=== PATIENT | female | born 1980 | race Caucasian/White ===

== ENCOUNTER 2019-10-09 11:12 | Emergency (ER) | payer OTHER, SELFPAY ==
[2019-10-09 11:19] VITALS: BP 164/100; PULSE 93; RESP 16; TEMP 36.7; O2SAT 100; BMI 22.3
--- NOTE | 2019-10-09 11:40 | HMH.EDBACK ---
ED Disposition Clinical Impression: Strain of lumbar region, Lumbar radiculopathy Disposition: Home, Self-Care Condition on Discharge: Good Instructions: DI for Low Back Pain Prescriptions: Nabumetone 750 mg PO BID 10 Days #20 tab Transmission Status: Pending to [facility] Tizanidine HCl [Zanaflex 4mg tablet] 4 mg PO TID 10 Days #30 tab Transmission Status: Pending to [facility] Referrals: PCP,No [Primary Care Provider] - - Critical Care Critical Care Time: No Attestation: On 10/09/19, the high probability of a clinically significant, sudden or life threatening deterioration of the following system(s) required my full and direct attention, intervention and personal management. The time I documented below is in addition to time spent performing reported procedures but includes the following listed in this critical care notation. Medical Decision Making - Medical Records Medical records reviewed: Yes: I reviewed the patient's medical records. - Cristian Inquiry Pt receiving controlled substance: No Vital Signs: 10/09/19 11:19 Temperature 98.1 F Temperature Source Oral Pulse Rate [Right] 93 H Respiratory Rate 16 Blood Pressure [Right Arm] 164/100 H Blood Pressure Mean [Right Arm] 121 Blood Pressure Source [Right Arm] Automatic Cuff Blood Pressure Position [Right Arm] Sitting 02 Sat by Pulse Oximetry 100 Oxygen Delivery Method Room Air - Lab Data Lab results reviewed: Yes: I reviewed the patient's lab results. - CT Data CT Scan: L-Spine Time Received: 13:[address] Reviewed: Yes: I have viewed the radiologist's interpretation Preliminary Findings: Normal/NAD Back Pain HPI - General Chief Complaint: Back Pain/Injury Stated Complaint: back pain Time Seen by Provider: 10/09/19 11:30 Mode of Arrival: Ambulatory Limitations: No Limitations Description of Symptoms (Recalled from ER Triage Doc. by RN): Pt c/o left lower back pain that goes down into her leg. Advises it started earlier in the week and it has gotten progressively worse - History of Present Illness MD Complaint: back pain Onset (ago): day(s) Duration: constant Similar Symptoms Previously: No Location: lumbar spine Severity: moderate Quality: sharp Radiation: left leg Severity scale (1-10): 6 Relieving factors: supine, walking Exacerbating factors: movement Context: turning/twisting Associated symptoms: denies other symptoms Treatments prior to arrival: cold therapy, NSAIDS - Related Data Previous Rx's Medication Instructions Recorded Nabumetone 750 mg PO BID 10 Days #20 tab 10/09/19 Tizanidine HCl [Zanaflex 4mg 4 mg PO TID 10 Days #30 tab 10/09/19 tablet] Allergies Allergy/AdvReac Type Severity Reaction Status Date / Time No Known Allergies Allergy Verified 10/09/19 11:23 [facility] History - Hepatitis A Screen Drug use history?: No High risk sexual behaviors?: No History of sexually transmitted infection?: No Currently employed?: No Childcare worker?: No Do you have indoor plumbing?: Yes Do you have electricity?: Yes Attestation statement:: This patient has been screened for Hepatitis A risk factors. I have reviewed the patient's past medical history: Yes Laterality Cases: Bilateral: Myringotomy (Ear Tubes) Other Surgeries: Yes: Appendectomy, Tubal Ligation Fractures: Yes Comment: right arm and right leg fracture repair, collapsed lung - Social History Smoking Status: Current every day smoker Tobacco Type: cigarettes # Packs/Day (cigarettes): 1 Alcohol Intake: never Occupational Status: employed Housing: house Household Members: family Family Hx:: No significant family history ROS Obtained: Yes All systems reviewed & no additional complaints - Constitutional Constitutional: Reports system reviewed and no additional complaints, except as docu - Eyes Eyes: Reports system reviewed and no additional complaints, except as docu - ENT Ears, Nose, Mouth, and Throat: Reports system re
--- NOTE | 2019-10-09 11:44 | CT_ITS ---
PROCEDURE: CT LUMBAR SPINE WO CON CLINICAL HISTORY: low back Low back pain extending into the left leg COMPARISON: No exams were available for comparison TECHNIQUE: Axial images obtained with sagittal and coronal reformats. All CT scans at the facility use one or more dose reduction, viz: automated exposure control, ma/kV adjustment per patient size (including targeted exams where dose is matched to indication, i.e. head), or iterative reconstruction technique. FINDINGS: Normal alignment. No fracture or dislocation. Mild bulging disc L3-L4 with small central disc protrusion and minimal left foraminal disc protrusion. MRI may confirm. Bulging disc at L4-5 eccentric to the left is noted with facet and ligamentum hypertrophy with lateral recess narrowing and mild bilateral foraminal narrowing left greater than right L5-S1: Mild bulging disc slightly eccentric to the left with small central disc protrusion. Mild degenerative disc disease L5-S1. IMPRESSION: 1. Mild bulging disc L3-L4 with small central disc protrusion and minimal left foraminal disc protrusion. 2. Bulging disc at L4-5 eccentric to the left is noted with facet and ligamentum hypertrophy with lateral recess narrowing and mild bilateral foraminal narrowing left greater than right 3. L5-S1: Mild bulging disc slightly eccentric to the left with small central disc protrusion. Mild degenerative disc disease L5-S1. 4. MRI may provide further evaluation to determine if there is any neural impingement at the above mentioned abnormalities Dictated b Al Aleman MD 10/10/2019 06:37 Al Aleman MD in [place] 10/10/2019 06:37
[2019-10-09 13:02] VITALS: BP 133/90; PULSE 78; RESP 16; O2SAT 100
[2019-10-09 13:11] VITALS: BP 145/85; PULSE 80; RESP 17; TEMP 36.7; O2SAT 98
== END 2019-10-09 13:12 | disposition home or self-care (01) ==
PROVIDERS: Emergency Provider Family Medicine
DX: S39.012A Strain of muscle, fascia and tendon of lower back, initial encounter (principal); F17.210 Nicotine dependence, cigarettes, uncomplicated
CPT/HCPCS: 72131; 96372; 99282; U0003

== ENCOUNTER 2020-03-12 13:15 | Emergency (ER) | payer OTHER, SELFPAY ==
[2020-03-12 14:20] VITALS: BP 138/87; PULSE 67; RESP 14; TEMP 36.6; O2SAT 100; BMI 23.0
--- NOTE | 2020-03-12 14:29 | HMH.EDUTC ---
[facility] [place] Clinical Impression: Exposure to COVID-19 virus Disposition: Home Health Service Condition on Discharge: Good Instructions: Preventing the Spread of Coronavirus Discharge Instructions Additional Instructions: Drink plenty of fluids. Take tylenol or ibuprofen for pain or fever. Take the medications as directed. Follow up with your regular doctor. GO TO THE ER FOR ANY WORSENING SYMPTOMS Referrals: Marcos Berg MD [Primary Care Provider] - Time of Disposition: 14:31 Medical Decision Making - Medical Records Medical records reviewed: No: I reviewed the patient's medical records. - Cristian Inquiry Pt receiving controlled substance: No [facility] [place]PI - General Stated complaint: covid test Time Seen by Provider: 03/12/20 14:29 - History of Present Illness Provider Complaint: She states that she has been exposed to covid-19 at her workplace. She denies any symptoms so far, but she needs a covid test. - Related Data Previous Rx's Medication Instructions Recorded Nabumetone 750 mg PO BID 10 Days #20 tab 10/09/19 Tizanidine HCl [Zanaflex 4mg 4 mg PO TID 10 Days #30 tab 10/09/19 tablet] Allergies Allergy/AdvReac Type Severity Reaction Status Date / Time No Known Allergies Allergy Verified 10/09/19 11:23 [facility] History - Hepatitis A Screen Attestation statement:: This patient has been screened for Hepatitis A risk factors. I have reviewed the patient's past medical history: Yes Laterality Cases: Bilateral: Myringotomy (Ear Tubes) Other Surgeries: Yes: Appendectomy, Tubal Ligation Fractures: Yes Comment: right arm and right leg fracture repair, collapsed lung - Social History Smoking Status: Current every day smoker Tobacco Type: cigarettes # Packs/Day (cigarettes): 1 Alcohol Intake: never Occupational Status: employed Housing: house Household Members: family Family Hx:: No significant family history ROS Obtained: Yes All systems reviewed & no additional complaints - Constitutional Constitutional: Reports system reviewed and no additional complaints, except as docu - Eyes Eyes: Reports system reviewed and no additional complaints, except as docu - ENT Ears, Nose, Mouth, and Throat: Reports system reviewed and no additional complaints, except as docu - Cardiovascular Cardiovascular: Reports system reviewed and no additional complaints, except as docu - Respiratory Respiratory: Reports system reviewed and no additional complaints, except as docu - Gastrointestinal Gastrointestingal: Reports: system reviewed and no additional complaints, except as docu Physical Exam - General General appearance: alert, in no apparent distress - Head Head exam: atraumatic, normocephalic, normal inspection - Eye Eye exam: Present: normal appearance, PERRL, EOMI - ENT ENT exam: Present: normal exam, normal oropharynx, mucous membranes moist, TM's normal bilaterally, normal external ear exam - Neck Neck exam: Present: normal inspection, full ROM, trachea midline. Absent: meningismus, lymphadenopathy - Chest Chest inspection: Present: normal inspection, symmetric chest wall rise. Absent: tenderness - Respiratory Respiratory exam: Present: normal lung sounds bilaterally. Absent: respiratory distress - Cardiovascular Cardiovascular exam: Present: regular rate, normal rhythm. Absent: JVD - Abdominal Exam Abdominal exam: Present: soft, normal bowel sounds. Absent: distention, tenderness, guarding - Extremities Exam Extremities exam: Present: normal inspection, full ROM, normal capillary refill. Absent: calf tenderness - Back Exam Back exam: Present: normal inspection. Absent: tenderness - Neurological Exam Neurological exam: Present: alert, oriented X3 - Psychiatric Psychiatric exam: Present: normal affect, normal mood - Skin Skin exam: Present: warm, dry, intact, normal color - Lymphatic Lymphatic Findings: no adenopathy
[2020-03-12 14:44] VITALS: BP 138/87; PULSE 67; RESP 14; TEMP 36.6; O2SAT 100
== END 2020-03-12 14:57 | disposition home health service (06) ==
PROVIDERS: Emergency Provider Nurse Practitioner Family; PCP Family Medicine
DX: Z20.822 Contact with and (suspected) exposure to COVID-19 (principal); F17.210 Nicotine dependence, cigarettes, uncomplicated
CPT/HCPCS: 99202; G0463; U0003

== ENCOUNTER 2020-09-17 16:51 | Emergency (ER) | payer OTHER, SELFPAY ==
--- NOTE | 2020-09-17 16:47 | ECG_ITS ---
APPROVED REPORT Exam: Resting ECG HR:141 bpm ECG Measurements Heart Rate 141 AXES HI 120 P 56 QRSd 76 QRS 52 QT 358 T 59 QTc 548 Conclusion Sinus tachycardia Nonspecific ST abnormality Abnormal ECG Electronically signed by : Marcos Brown, 09/17/2020 22:08:09
[2020-09-17 16:52] VITALS: BP 161/106; PULSE 148; RESP 14; TEMP 37.1; O2SAT 99; BMI 22.3
--- NOTE | 2020-09-17 17:06 | XR_ITS ---
PROCEDURE INFORMATION: Exam: XR Chest Exam date and time: 09/17/2020 5:06 PM Age: 40 years old Clinical indication: Other: Tachycardia TECHNIQUE: Imaging protocol: XR of the chest. Upright AP portable exam 5:21 p.m. Views: 1 view. COMPARISON: CR [id number] XR ribs LT min 3V w CXR1V 06/29/2018 10:12 AM FINDINGS: Lungs: There is slight hazy central and lower pulmonary interstitial prominence/bronchovascular prominence, but no focal pulmonary consolidation. Lung volumes appear normal. Right upper lung is slightly radiolucent compared with left, which may be positional artifact or due to mild emphysematous changes. Pleural spaces: Unremarkable. No significant pleural effusion. No pneumothorax. New Heart/Mediastinum: Cardiac silhouette appears borderline enlarged, accentuated by portable AP technique. Bones/joints: There is no evidence of acute fracture. Gastrointestinal tract: Mild gaseous distention of the stomach. Other findings: Overlying personnel monitor electrodes. IMPRESSION: 1. Increased prominence of the cardiac silhouette, and increased hazy central and lower pulmonary interstitial markings compared with the prior exam; correlate for mild vascular congestion. 2. No focal consolidation.
[2020-09-17 17:18] LABS: Basophils # 0.1 K/mm3 (0-0.2); Basophils % 1.2 % (0.1-2.0); Eosinophils # 0.2 K/mm3 (0.0-0.4); Eosinophils % 1.7 % (0.1-12.0); Hematocrit 45.2 % (37.0-47.0); Hemoglobin 15.4 g/dL (12.2-16.2); Lymphocytes # 3.8 K/mm3 (0.7-4.5); Lymphocytes % 40.4 % (10-50); Mean Corpuscular Hemoglobin 32.4 pg (27.0-31.2); Mean Corpuscular Volume 95.6 fl (81-99); Mean Platelet Volume 8.2 fl (7.4-10.4); Monocytes # 0.4 K/mm3 (0.1-1.0); Monocytes % 4.7 % (1.7-9.3); Neutrophils # 4.9 K/mm3 (1.8-7.8); Neutrophils % 52.1 % (37.0-80.0); Platelet Count 322 K/mm3 (142-424); Red Blood Count 4.73 M/mm3 (4.20-5.40); Red Cell Distribution Width 12.7 % (11.5-17.5); White Blood Count 9.3 K/mm3 (4.8-10.8)
[2020-09-17 17:33] LABS: Barbiturates Screen,Urine Negative ng/ml (<200); Benzodiazepines Screen,Urine Negative ng/ml (<200)
[2020-09-17 17:34] LABS: Amphetamine/Metha Screen,Urine Negative ng/ml (<1000)
[2020-09-17 17:35] LABS: Cannabinoid Screen,Urine Negative ng/ml (<50); Cocaine Screen,Urine Negative ng/ml (<300)
--- NOTE | 2020-09-17 17:35 | HMH.EDGENADL ---
ED Disposition Clinical Impression: Drug abuse, episodic use Disposition: Home, Self-Care Condition on Discharge: Good Instructions: DI for Shortness of Breath Additional Instructions: FOLLOW UP WITH PCP IF ANY FURTHER ISSUES OR RETURN TO ED IF DYSPNEA, ALTERED MENTAL STATUS OCCURS. PLEASE DO NOT TAKE ANY MEDICATIONS THAT DO NOT BELONG TO YOU. Referrals: Provider,Referral, [Primary Care Provider] - - Critical Care Critical Care Time: Yes Attestation: On 09/17/20, the high probability of a clinically significant, sudden or life threatening deterioration of the following system(s) required my full and direct attention, intervention and personal management. The time I documented below is in addition to time spent performing reported procedures but includes the following listed in this critical care notation. Total Critical Care Time: 30 Vital system(s) involved:: Metabolic Failure My critical care processes included: Assessment & monitoring of V/S, Initial and Re-exams, Data Review/Interpretation Medical Decision Making - Medical Records Medical records reviewed: Yes: I reviewed the patient's medical records. - Cristian Inquiry Pt receiving controlled substance: No Vital Signs: 09/17/20 16:52 Temperature 98.8 F Temperature Source Rectal Pulse Rate [Left Radial] 148 H Respiratory Rate 14 Blood Pressure [Right Arm] 161/106 H Blood Pressure Mean [Right Arm] 124 Blood Pressure Source [Right Arm] Automatic Cuff Blood Pressure Position [Right Arm] Sitting 02 Sat by Pulse Oximetry 99 Oxygen Delivery Method Room Air - Lab Data Lab Results 09/17/20 16:50: WBC 9.3, RBC 4.73, Hgb 15.4, Hct 45.2, MCV 95.6, MCH 32.4 H, MCHC 34.0, RDW 12.7, Plt Count 322, MPV 8.2, Neut % (Auto) 52.1, Lymph % (Auto) 40.4, Waldo % (Auto) 4.7, Eos % (Auto) 1.7, Baso % (Auto) 1.2, Neut # (Auto) 4.9, Lymph # (Auto) 3.8, Waldo # (Auto) 0.4, Eos # (Auto) 0.2, Baso # (Auto) 0.1 09/17/20 17:05: Urine Opiates Screen Negative, Urine Methadone Screen Negative, Ur Barbituates Screen Negative, Ur Phencyclidine Scrn Negative, Ur Amphetamines Screen Negative, U Benzodiazepines Scrn Negative, Urine Cocaine Screen Negative, U Marijuana (THC) Screen Negative 09/17/20 17:45: Sodium 138, Potassium 4.0, Chloride 103, Carbon Dioxide 29, Anion Gap 10.0, BUN 16, Creatinine 0.80, Estimated Creat Clear 89, Estimated GFR 80, Est GFR ( Amer) 97, Glucose 94, Calcium 8.7, Total Bilirubin 0.5, AST 37 H, ALT 34, Alkaline Phosphatase 47, Troponin I < 0.01, Total Protein 6.8, Albumin 4.1, Globulin 2.7, Albumin/Globulin Ratio 1.5 09/17/20 18:03: Lactate 1.0 Result diagrams: 09/17/20 16:50 09/17/20 17:45 Orders (Tests/Meds): ED MEDICATIONS Generic Name Dose Route Start Last Admin Trade Name Freq PRN Reason Stop Dose Admin Lactated Ringer's 500 mls @ 999 mls/hr 09/17/20 17:15 09/17/20 17:23 Lactated Ringer's 1000 Ml Bag IV 09/17/20 17:45 999 mls/hr .Q31M [facility] Administration ORDERS Category Date Time Status Troponin I Q3H Lab 09/17/20 23:15 Ordered Medical Decision Narrative: Patient to the ED today is 40-year-old female with concern for toxic substance ingestion. Patient is somnolent on initial evaluation, tachycardic with a heart rate of 145, and appearing unwell. Quickly establish IV access, and 1 L of IV fluids, patient's toxidrome is difficult to fully determine, she is dry appearing, mydriatic, and somnolent which would be consistent with a anticholinergic overdose. The medication she ingested is uncertain as well, will obtain CBC CMP troponin, EKG, lactic acid, IV access 1 L of IV fluids, and reevaluate. Dilation performed at 5:30 PM, patient has remained tachycardic although improving at rate of 110, blood pressure stabilized, patient is still somnolent but is easily arousable. Patient reassessed at 6 PM, heart rate is improving is just below 100. Patient reassessed at 6:30 PM, less somnolent than prior, another bolus of IV fluids
[2020-09-17 17:36] LABS: Methadone Screen,Urine Negative ng/ml (<300)
[2020-09-17 17:37] LABS: Opiate Screen,Urine Negative ng/ml (<300); Phencyclidine Screen,Urine Negative ng/ml (<25)
[2020-09-17 18:22] LABS: Alanine Aminotransferase 34 U/L (12-78); Albumin Level 4.1 g/dl (3.5-5.0); Albumin/Globulin Ratio 1.5 (1.1-1.8); Alkaline Phosphatase 47 U/L (38-126); Aspartate Amino Transferase 37 U/L (14-36); Bilirubin,Total 0.5 mg/dl (0.2-1.3); Blood Urea Nitrogen 16 mg/dl (7-17); Calcium 8.7 mg/dl (8.4-10.2); Carbon Dioxide 29 mmol/L (22.0-30.0); Chloride 103 mmol/L (98-107); Creatinine Clearance Estimated 89 mL/min (50-200); Estimated Glomerular Filt Rate 80 ml/min (>60); GFR (African American) 97 ML/MIN (>60); Globulin 2.7 g/dL (1.3-3.2); Glucose 94 mg/dl (74-100); Sodium 138 mmol/L (136-145); Total Protein,Serum 6.8 g/dl (6.3-8.2)
[2020-09-17 18:36] LABS: Troponin I < 0.01 ng/ml (0.00-0.034)
[2020-09-17 20:19] VITALS: BP 123/74; PULSE 73; RESP 16; TEMP 36.8; O2SAT 99
== END 2020-09-17 20:42 | disposition home or self-care (01) ==
PROVIDERS: Emergency Provider Student in an Organized Health Care Education/Training Program
DX: T50.901A Poisoning by unspecified drugs, medicaments and biological substances, accidental (unintentional), initial encounter (principal); R00.0 Tachycardia, unspecified; Y92.9 Unspecified place or not applicable; R06.02 Shortness of breath; F17.210 Nicotine dependence, cigarettes, uncomplicated
CPT/HCPCS: 71045; 80053; 80305; 83605; 84484; 85025; 93005; 96365; 99283

== ENCOUNTER 2020-10-10 10:55 | Emergency (ER) | payer OTHER, SELFPAY ==
[2020-10-10 11:32] VITALS: BP 141/93; PULSE 109; RESP 21; TEMP 37; O2SAT 98; BMI 21.4
--- NOTE | 2020-10-10 11:37 | HMH.EDUTC ---
[facility] [place] Clinical Impression: Encounter for laboratory testing for COVID-19 virus, Viral syndrome Disposition: Home, Self-Care Condition on Discharge: Good Instructions: Vitamin D, Zinc, Vitamin C (Ascorbic Acid), DI for Viral Syndrome Additional Instructions: *Monitor Temp, Over the counter Motrin or Tylenol as directed/as needed Tylenol every 4 hours and Motrin every 6 hours (as long as your family doctor has told you that you can take it) for fever or pain. and straight to ER if unable to lower temp less than 101.0 after medication given *Warm salt water gargles may help to soothe the throat *Throat Lozenges *Warm fluids like tea with honey may help to soothe the throat *Sleep elevated *Humidifier/Vaporizer Follow up IMMEDIATELY for new or worsening symptoms or no Noticeable improvement over the next 48-72 hours. 911 for difficulty breathing or swallowing You were tested for today for COVID19 your test result should be back in the next 24-48 hours, you may call to the [facility] to see if your test results are back in the next 48 hours [phone] [facility] hours are 9am-9pm You was given a handout with instructions for Self Quarantine and Self isolation for while you wait on test results and what to do if they are positive If you are positive the Health Dept will be contacting you also Referrals: Marcos Berg MD [Primary Care Provider] - As needed Forms: Work/School Release Time of Disposition: 11:46 Medical Decision Making - Cristian Inquiry Pt receiving controlled substance: No Cristian was queried for this patient: No Vital Signs: 10/10/20 11:32 Temperature 98.6 F Temperature Source Oral Pulse Rate [Left] 109 H Respiratory Rate 21 Blood Pressure [Right Arm] 141/93 H Blood Pressure Mean [Right Arm] 109 02 Sat by Pulse Oximetry 98 Orders (Tests/Meds): ORDERS Category Date Time Status Covid-19 Nasal PCR ([facility]) Routine Lab 10/10/20 11:34 Ordered [facility] [place]PI - General Stated complaint: cough sore throat headache Time Seen by Provider: 10/10/20 11:38 Mode of Arrival: Ambulatory Source of Information: Patient Limitations: No Limitations Description of Symptoms (Recalled from Triage Doc. by RN): pt c/o body aches, stomach ache, PAULSON, and congestion. 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 been around someone with it or not - Related Data Previous Rx's Medication Instructions Recorded Nabumetone 750 mg PO BID 10 Days #20 tab 10/09/19 Tizanidine HCl [Zanaflex 4mg 4 mg PO TID 10 Days #30 tab 10/09/19 tablet] Allergies Allergy/AdvReac Type Severity Reaction Status Date / Time No Known Allergies Allergy Verified 10/09/19 11:23 - Worker's Comp Is this a Worker's Comp case?: No [facility] History - Hepatitis A Screen Drug use history?: No High risk sexual behaviors?: No History of sexually transmitted infection?: No Currently employed?: No Childcare worker?: No Do you have indoor plumbing?: Yes Do you have electricity?: Yes Attestation statement:: This patient has been screened for Hepatitis A risk factors. I have reviewed the patient's past medical history: Yes Laterality Cases: Bilateral: Myringotomy (Ear Tubes) Other Surgeries: Yes: Appendectomy, Tubal Ligation Fractures: Yes Comment: right arm and right leg fracture repair, collapsed lung - Social History Smoking Status: Current every day smoker Tobacco Type: cigarettes # Packs/Day (cigarettes): 1 Alcohol Intake: never Occupational Status: other Housing: house
[2020-10-10 12:40] VITALS: BP 139/87; PULSE 97; RESP 22; TEMP 37.1
== END 2020-10-10 12:40 | disposition home or self-care (01) ==
PROVIDERS: Emergency Provider Nurse Practitioner; PCP Family Medicine
DX: B34.9 Viral infection, unspecified (principal); Z20.822 Contact with and (suspected) exposure to COVID-19; F17.210 Nicotine dependence, cigarettes, uncomplicated
CPT/HCPCS: 99202; G0463; U0003

== ENCOUNTER 2020-10-10 17:46 | Emergency (ER) | payer OTHER, SELFPAY ==
--- NOTE | 2020-10-10 | XR_ITS ---
PROCEDURE: XR CHEST AP CLINICAL HISTORY: COUGH COMPARISON: CR [id number] XR ribs LT min 3V w CXR1V from 06/29/2018 CR XR CHEST PORTABLE from 09/17/2020 FINDINGS: Mild cardiomegaly. There is moderate patient rotation. Atelectatic changes are present in the left lung base. There are low lung volumes. Osteoarthritic change of the right shoulder. Bone plate is present along the left proximal humerus. IMPRESSION: Cardiomegaly with mild left basilar atelectasis. Dictated by: Al Aleman MD 10/17/2020 11:20 Al Aleman MD in [place] 10/17/2020 11:20
[2020-10-10 17:48] VITALS: BP 128/96; PULSE 105; RESP 18; TEMP 36.8; O2SAT 97; BMI 20.5
--- NOTE | 2020-10-10 18:03 | HMH.EDGENADL ---
ED Disposition Clinical Impression: Viral syndrome Disposition: Home, Self-Care Condition on Discharge: Good Referrals: Marcos Berg MD [Primary Care Provider] - - Critical Care Critical Care Time: No Attestation: On , the high probability of a clinically significant, sudden or life threatening deterioration of the following system(s) required my full and direct attention, intervention and personal management. The time I documented below is in addition to time spent performing reported procedures but includes the following listed in this critical care notation. Medical Decision Making - Cristian Inquiry Pt receiving controlled substance: No Cristian was queried for this patient: No General Adult HPI - General Stated complaint: cough,weakness,SOB/PAULSON, congestion Time Seen by Provider: 10/10/20 18:03 - History of Present Illness HPI narrative: Old female walked to the emergency room complaining of nausea this been going for few days. She has no vomiting. She did not have any fever or chills. She said she has dry cough. She has muscle aches. She went to the urgent care this morning and they tested her for Covid and it was negative. She denies any dysuria. She started her menstrual period now. - Related Data Previous Rx's Medication Instructions Recorded Nabumetone 750 mg PO BID 10 Days #20 tab 10/09/19 Tizanidine HCl [Zanaflex 4mg 4 mg PO TID 10 Days #30 tab 10/09/19 tablet] Allergies Allergy/AdvReac Type Severity Reaction Status Date / Time No Known Allergies Allergy Verified 10/09/19 11:23 [facility] History - Hepatitis A Screen Attestation statement:: This patient has been screened for Hepatitis A risk factors. Laterality Cases: Bilateral: Myringotomy (Ear Tubes) Other Surgeries: Yes: Appendectomy, Tubal Ligation Fractures: Yes Comment: right arm and right leg fracture repair, collapsed lung - Social History Smoking Status: Current every day smoker Tobacco Type: cigarettes # Packs/Day (cigarettes): 1 Alcohol Intake: never Occupational Status: other Housing: house Household Members: family Family Hx:: No significant family history ROS Obtained: Yes All systems reviewed & no additional complaints - Constitutional Constitutional: Reports anorexia, Reports fatigue, Reports poor appetite, Reports malaise - Eyes Eyes: Reports system reviewed and no additional complaints, except as docu - ENT Ears, Nose, Mouth, and Throat: Reports system reviewed and no additional complaints, except as docu - Cardiovascular Cardiovascular: Reports system reviewed and no additional complaints, except as docu - Respiratory Respiratory: Reports cough - Gastrointestinal Gastrointestingal: Reports: system reviewed and no additional complaints, except as docu, nausea - Genitourinary Female Genitourinary: Reports system reviewed and no additional complaints, except as docu - Musculoskeletal Musculoskeletal: Reports system reviewed and no additional complaints, except as docu - Integumentary/Breasts Skin/Breast: Reports system reviewed and no additional complaints, except as docu - Neurologic Neurologic: Reports system reviewed and no additional complaints, except as docu - Endocrine Endocrine: Reports system reviewed and no additional complaints, except as docu Physical Exam - General General appearance: alert, in no apparent distress - Head Head exam: atraumatic, normocephalic, normal inspection - Eye Eye exam: Present: normal appearance, PERRL, EOMI - ENT ENT exam: Present: normal exam, normal oropharynx, mucous membranes moist, TM's normal bilaterally, normal external ear exam - Neck Neck exam: Present: normal inspection, full ROM, trachea midline. Absent: meningismus, lymphadenopathy - Chest Chest inspection: Present: normal inspection, symmetric chest wall rise. Absent: tenderness - Respiratory Respiratory exam: Present: normal lung sounds bilaterally. Absent: resp
--- NOTE | 2020-10-10 18:13 | PC.NURSE ---
PT seen walking out of room & into lobby.
--- NOTE | 2020-10-10 18:20 | PC.NURSE ---
All of lobby searched for pt, unable to locate pt.
[2020-10-10 18:30] VITALS: BP 00/00; PULSE 0; RESP 0; TEMP -17.7; TEMP 0
== END 2020-10-10 18:31 | disposition home or self-care (01) ==
PROVIDERS: Emergency Provider Internal Medicine; PCP Family Medicine
DX: B34.9 Viral infection, unspecified (principal); F17.210 Nicotine dependence, cigarettes, uncomplicated
CPT/HCPCS: 71045; 99211

== ENCOUNTER 2021-03-02 11:43 | Emergency (ER) | payer OTHER, SELFPAY ==
[2021-03-02 13:25] VITALS: BP 0/0; PULSE 0; RESP 0; TEMP -17.7; TEMP 0
== END 2021-03-02 13:31 | disposition left against medical advice (07) ==
LOC: UTC 11:48
PROVIDERS: Emergency Provider Nurse Practitioner Family; PCP Family Medicine
DX: Z53.21 Procedure and treatment not carried out due to patient leaving prior to being seen by health care provider (principal)

== ENCOUNTER → 2021-03-02 13:04 | Outpatient (CLI) | payer OTHER, SELFPAY | PROVIDERS: PCP Family Medicine; Visit Provider Nurse Practitioner Family | DX: Z20.822 Contact with and (suspected) exposure to COVID-19 (principal) ==

== ENCOUNTER → 2021-03-03 12:56 | Outpatient (CLI) | payer OTHER, SELFPAY | PROVIDERS: PCP Family Medicine; Visit Provider Nurse Practitioner Family | DX: U07.1 COVID-19 (principal) | CPT/HCPCS: C9803; U0003; U0005 ==

== ENCOUNTER → 2021-03-06 15:47 | Outpatient (CLI) | payer OTHER, SELFPAY | PROVIDERS: Visit Provider Nurse Practitioner | DX: U07.1 COVID-19 (principal) | CPT/HCPCS: C9803; U0003; U0005 ==